=== PATIENT | female | born 1970 | race Native Hawaiian/Other Pacific Islander ===

== ENCOUNTER 2022-11-06 00:35 | Day surgery (SDC) | payer OTHER, SELFPAY ==
[2022-10-31 12:31] VITALS: BMI 41.1
--- NOTE | 2022-11-05 20:11 | PM.HPGS ---
History of Present Illness History of Present Illness Consent: Risks, benefits, and alternatives have been discussed and questions answered. Patient agrees to proceed with procedure. Chief complaint: IBS-D Narrative: Demi Lee is a 52 year old female who is referred for colon cancer screening. Review of Systems Review of Systems: All systems reviewed & are unremarkable except as noted in HPI and below PMFSH Social History Social History Years smoked: 15 Smoking status: Current every day smoker Tobacco type: cigarettes Alcohol intake: current Drinks per week: 2 Substance use: current Substance use type: marijuana Other substance usage details: Gummies - 2X weekly Living arrangements: with family Spiritual care concerns: No Meds Home Medications and Allergies Home Medications Medication Instructions Recorded Confirmed Type Lactobacillus 1 cap PO DAILY 10/31/22 10/31/22 History acidophilus-Bifidobac.animalis 2.5 billion cell capsule (Daily Probiotic) dicyclomine 20 mg tablet 20 mg PO QID 10/31/22 10/31/22 History tizanidine 4 mg tablet 4 mg PO TID 10/31/22 10/31/22 History Allergies Allergy/AdvReac Type Severity Reaction Status Date / Time codeine Allergy Chest Pain Verified 10/31/22 12:32 Exam Const: General: alert Orientation/consciousness: patient oriented x3 Resp: Auscultation: clear to auscultation bilaterally Cardio: Rhythm: regular rhythm GI: GI Palp: Yes Soft to palpation and No Tenderness to palpation present (GI) Neuro: General: patient oriented x3 Assessment and Plan Assessment and plan (1) Colon cancer screening: Code(s): Z12.11 - Encounter for screening for malignant neoplasm of colon Status: Acute Assessment and Plan: Colonoscopy with possible biopsy or polypectomy or cautery or injection of substances.
[2022-11-06 12:45] VITALS: BP 127/85; PULSE 86; RESP 20; TEMP 36.1; O2SAT 97
--- NOTE | 2022-11-06 12:49 | P.PNAN_ITS ---
Anes - Initial Pre Proc Eval Procedure: Operation Date: 11/06/22 14:00 Proposed Procedures p Colonoscopy - Kane Boston MD Date/Time: 11/06/22 12:49 Surgeon: Kane Boston MD Pre Op Diagnosis: IBS-D Patient Data Age: 52 Gender: F Height: 1.7 m Weight: 118.4 kg Last Vital Signs Temp 97 F L 11/06/22 12:45 Pulse 86 11/06/22 12:45 Resp 20 11/06/22 12:45 BP 127/85 11/06/22 12:45 Pulse Ox 97 11/06/22 12:45 O2 Del Method Room Air 11/06/22 12:45 Allergies Allergy/AdvReac Type Severity Reaction Status Date / Time codeine Allergy Chest Pain Verified 10/31/22 12:32 Home Medications Medication Instructions Recorded Confirmed Type Lactobacillus 1 cap PO DAILY 10/31/22 10/31/22 History acidophilus-Bifidobac.animalis 2.5 billion cell capsule (Daily Probiotic) dicyclomine 20 mg tablet 20 mg PO QID 10/31/22 10/31/22 History tizanidine 4 mg tablet 4 mg PO TID 10/31/22 10/31/22 History Patient hx anesthesia problems: none Family hx anesthesia problems: none Results Review: All pre-operative results and documents have been reviewed as part of the pre- operative evaluation. [facility] Social History Social History Years smoked: 15 Smoking status: Current every day smoker Tobacco type: cigarettes Alcohol intake: current Drinks per week: 2 Substance use: current Substance use type: marijuana Other substance usage details: Gummies - 2X weekly Living arrangements: with family Spiritual care concerns: No Anes - Eval Final PreProcedure Day of Procedure 11/06/22 12:49 Patient weight: morbidly obese Heart: regular rate and rhythm Lungs: clear to auscultation Airway: Mallampati scale class III Neurological: alert and oriented Last oral intake: >/= 8 hours ASA classification: III Emergent: no Anesthetic plan: proceed Anesthesia type and monitoring: general GIVS and standard monitoring Results Review: All pre-operative results and documents have been reviewed as part of the pre- operative evaluation. Informed Consent: The patient's anesthetic plan and its attendant risks and benefits were discussed with the patient/family/POA. Questions were solicited and answers provided to the satisfaction of the patient/family/POA.
[2022-11-06] MEDS: LACTATED RINGERS 1,000 ML 150 ML IV CONT (13:01)
[2022-11-06 13:33] VITALS: BP 104/70; PULSE 72; RESP 15; O2SAT 97
[2022-11-06 13:43] VITALS: BP 109/77; PULSE 68; RESP 16; O2SAT 98
[2022-11-06 13:53] VITALS: BP 121/70; PULSE 70; RESP 19; O2SAT 98
== END 2022-11-06 14:01 | disposition home or self-care (01) ==
PROVIDERS: Visit Provider Internal Medicine Gastroenterology
PROC: 0DJD8ZZ Inspection of Lower Intestinal Tract, Via Natural or Artificial Opening Endoscopic (ICD-10-PCS; CPT 45378; principal; 2022-11-06 14:00)
DX: Z12.11 Encounter for screening for malignant neoplasm of colon (principal); K57.30 Diverticulosis of large intestine without perforation or abscess without bleeding; K64.8 Other hemorrhoids; F17.210 Nicotine dependence, cigarettes, uncomplicated
CPT/HCPCS: 45380; 88305; J2704; J7120